=== PATIENT | female | born 1960 | race Two or more races ===

== ENCOUNTER 2017-05-13 15:33 | Emergency (ER) | payer SELFPAY ==
[~2017-05-13] VITALS: Ht 162.6 cm; Wt 96.0 kg
[2017-05-13] MEDS ORDERED: PREDNISONE 20MG TABLET PO ONE (16:00)
[2017-05-13] MEDS ORDERED: ACYCLOVIR 400 MG TABLET PO ONE (16:00)
[2017-05-13 16:15] LABS: BASOPHILS % 0.7 % (0.0-2.0); EOSINOPHILS % 0.7 % (0.0-5.0); HEMATOCRIT. 39.8 % (36.0-48.0); HEMOGLOBIN. 13.7 g/dL (12.0-16.0); LYMPHOCYTES % 36.7 % (20.0-50.0); MEAN CORPUSCULAR HEMOGLOBIN 27.8 pg (28.0-32.0); MEAN CORPUSCULAR VOLUME 80.7 fL (81.0-99.0); MEAN PLATELET VOLUME 7.9 fl (7.4-10.4); MONOCYTES % 7.8 % (2.0-8.0); NEUTROPHILS % 54.1 % (40.0-76.0); PLATELET 189 x1000/uL (130-400); RED BLOOD CELL COUNT 4.93 mill/uL (4.2-5.4); RED CELL DISTRIBUTION WIDTH 13.7 % (11.6-14.6)
[2017-05-13 16:17] LABS: CHLORIDE 99 mEq/L (98-107)
[2017-05-13 17:50] VITALS: BP 158/89
== END 2017-05-13 18:40 | disposition home or self-care (01) ==
LOC: ER 15:33
DX: G51.0 Bell's palsy (principal); R94.31 Abnormal electrocardiogram [ECG] [EKG]
CPT/HCPCS: 36415; 70450; 80053; 85025; 93005; 99285